=== PATIENT | male | born 1945 | race Caucasian/White ===

== ENCOUNTER 2017-06-26 18:56 | Emergency (ER) | payer MEDICARE, OTHER ==
[~2017-06-26] VITALS: Ht 180.3 cm; Wt 106.2 kg
[~2017-06-26 18:56] MED LIST: DIOV160T8 PO; DOXY100T PO; NAPR500 PO; SULF1TAB47 PO; TAB-TAB PO
[2017-06-26 19:03] VITALS: BP 186/87; PULSE 126; RESP 12; TEMP 99.2; O2SAT 98
[2017-06-26] MEDS ORDERED: LUTE20CA PO (19:22)
[2017-06-26] MEDS ORDERED: NAPR500T2 PO (19:22)
[2017-06-26] MEDS ORDERED: AMLO5TAB2 PO (19:22)
[2017-06-26] MEDS ORDERED: COEN1CAP17 (19:22)
--- NOTE | 2017-06-26 19:29 | PD ---
HPI Chief Complaint: Skin Problem Time Seen by Provider: 19:19 Travel History International Travel<30 days: No Contact w/Intl Traveler<30days: No Traveled to known affect area: No History of Present Illness HPI Patient comes to the emergency department for evaluation of possible allergic reaction ongoing for 8 days. Patient reports 8 days ago he awoke with his lip swelling got progressively worse. Patient contacted his primary care doctor who switched his blood pressure medicine around and told him to take Zyrtec. Patient reports he has been doing this and symptoms have improved. Patient's rash moved from his face to his belt line which has improved. Patient complaining of the rash onto his left hand today. Patient describes rash has been pruritic, but denies this currently. Patient reports he has feels slight pressure in his left hand. Patient denies anything making it worse. Patient last took Zyrtec today around noon. Patient denies any respiratory symptoms, sensation of throat closing, or other no new allergen exposures. Patient reports his primary care doctor sent him for blood work today and has follow-up appointment with him tomorrow. Denies any trauma or IV drug use. Denies any fevers. PFSH Past Medical History Heart Rhythm Problems: No Cardiac Catheterization: No Cardiovascular Problems: Yes High Cholesterol: No Congestive Heart Failure: No Diabetes: No Diminished Hearing: No Gastrointestinal Disorders: Yes (HX OF COLITIS) Hypertension: Yes Myocardial Infarction: No ?: Not Past Surgical History Cholecystectomy: Yes Coronary Artery Bypass Graft: No Eye Surgery: Yes (NARROW ANGLE GLAUC-LASER SURG) Social History Alcohol Use: No Tobacco Use: No Substance Use: No Allergies-Medications (Allergen,Severity, Reaction): Coded Allergies: No Known Allergies (Verified , 10/19/11) Reported Meds & Prescriptions Reported Meds & Active Scripts Active Pepcid (Famotidine) 20 Mg Tab 20 Mg PO BID 10 Days Medrol Dosepak (Methylprednisolone) 4 Mg Dspk 4 Mg PO DIRECTED Per Pharmacist direction Reported Lutein 20 Mg Cap 20 Mg PO DAILY [id number] E (Coenzyme [id number] E) 200 MG-20 Unit Cap Naproxen 500 Mg Tab 500 Mg PO BID Amlodipine (Amlodipine Besylate) 5 Mg Tab 5 Mg PO DAILY Review of Systems Except as stated in HPI: all other systems reviewed are Neg Physical Exam Narrative GENERAL: Well-developed, overly nourished, in no acute distress, and non-ill appearing. SKIN: Focused skin assessment warm and dry. Mild erythema soft tissue swelling noted left hand. No crepitus induration, fluctuation, or signs of secondary infection. HEAD: Atraumatic. Normocephalic. EYES: Pupils equal and round. EOMI. No scleral icterus. No injection or drainage. ENT: No nasal bleeding or discharge. Mucous membranes pink and moist. NECK: Trachea midline. No no stridor. Supple. No nuclear rigidity. CARDIOVASCULAR: Regular rate and rhythm. No murmur appreciated. RESPIRATORY: No accessory muscle use. No respiratory distress. Clear to auscultation. Breath sounds equal bilaterally. No stridor MUSCULOSKELETAL: No obvious deformities. No clubbing. No cyanosis. No edema. Full range of motion. NEUROLOGICAL: Awake and alert. No obvious cranial nerve deficits. Motor grossly within normal limits. Normal speech. PSYCHIATRIC: Appropriate mood and affect; insight and judgment normal. Data Data Last Documented VS Vital Signs Date Time Temp Pulse Resp B/P (MAP) Pulse Ox O2 Delivery O2 Flow Rate FiO2 06/26/17 20:28 112 18 149/86 (107) 96 Room Air 06/26/17 19:03 99.2 Orders Orders Dexamethasone Inj (Decadron Inj) (06/26/17 19:30) Famotidine (Pepcid) (06/26/17 19:30) Ed Discharge Order (06/26/17 20:18) [facility] Medical Decision Making Medical Screen Exam Complete: Yes Emergency Medical Condition: Yes Differential Diagnosis Allergic reaction, rash, gout, pseudogout, arthritis Narrative Course Appears allergic reaction. There is no airway involvement nor difficulty swallowing. Patient looks great. The patient is tolerating fluids. The patient looks great, the findings are minimal and due to nonprogression of symptoms here the patient is safe to discharge home. The patient feels comfortable with plan and will return immediately if symptoms begin to worsen. The rash is not consistent with erythema multiforme at this time. The patient is to continue histamine 1 and 2 blockade as well as steroids. The patient was instructed to avoid potential precipitating factor and to follow up with their regular physician and or follow up with clinic specialist for definitive allergy testing. The patient agrees with plan. Patient in no obvious distress upon re-evaluation. Patient's symptoms improved. Patient was asked if they wanted to speak to my attending, which the patient did not wish to do at this time. Any questions/concerns in reference to patient diagnosis/condition discussed and clarified prior to patient's discharge. Reinforced sheer importance of close follow up with patient's primary physician or primary care clinic. Instructed patient to return to ED immediately, if symptoms return/worsen. Patient showed understanding of above instructions. Further instructions and recommendations were detailed in discharge paperwork. Patient ambulated without difficulty out of ED at discharge. Diagnosis Primary Impression: Allergic reaction Qualified Codes: T78.40XD - Allergy, unspecified, subsequent encounter Patient Instructions: General Allergic Reaction (ED), General Instructions Additional Instructions: Follow-up with your primary care physician tomorrow for reevaluation. Take all medication as prescribed. Do not take your naproxen while taking steroids prescribed today. Return to the emergency department if symptoms get worse. Med/Other Pt SpecificInfo: Prescription(s) given Scripts Famotidine (Pepcid) 20 Mg Tab 20 MG PO BID for 10 Days, #20 TAB 0 Refills Prov: Lilia Yen MD 06/26/17 Methylprednisolone Dosepak (Medrol Dosepak) 4 Mg Dspk 4 MG PO DIRECTED, #1 DSPK 0 Refills Per Pharmacist direction Prov: Lilia Yen MD 06/26/17 Disposition: 01 DISCHARGE HOME Condition: Stable Vimal Quiroz Jun 26, 2017 19:29
[2017-06-26] MEDS ORDERED: DEXAMETHASONE SOD PHOS 20 MG/5 ML VIAL IM ONE (19:30)
[2017-06-26] MEDS ORDERED: FAMOTIDINE 20 MG TAB PO ONE (19:30)
[2017-06-26] MEDS ORDERED: FAMO1TAB37 PO (20:20)
[2017-06-26] MEDS ORDERED: MEDR4PAK PO (20:20)
[2017-06-26 20:28] VITALS: BP 149/86; PULSE 112; RESP 18; O2SAT 96
== END 2017-06-26 20:41 | disposition home or self-care (01) ==
LOC: PHEFT 18:56
DX: T78.40XA Allergy, unspecified, initial encounter (principal); X58.XXXA Exposure to other specified factors, initial encounter; R21 Rash and other nonspecific skin eruption; I10 Essential (primary) hypertension
CPT/HCPCS: 96372; 99283; J1100

== ENCOUNTER 2017-07-11 05:39 | Emergency (ER) | payer MEDICARE, OTHER ==
[~2017-07-11] VITALS: Ht 180.3 cm; Wt 102.9 kg
[~2017-07-11 05:39] MED LIST changes: +AMLO5TAB2 PO; +COEN1CAP17; -DIOV160T8 PO; -DOXY100T PO; +FAMO1TAB37 PO; +LUTE20CA PO; +MEDR4PAK PO; -NAPR500 PO; +NAPR500T2 PO; -SULF1TAB47 PO; -TAB-TAB PO
[2017-07-11 05:45] VITALS: BP 182/89; PULSE 97; RESP 18; TEMP 97.8; O2SAT 98
[2017-07-11 05:59] VITALS: O2SAT 97
[2017-07-11] MEDS ORDERED: SODIUM CHLORIDE 0.9% FLUSH 10 ML FLUSH IV FLUSH PRN (06:00)
[2017-07-11] MEDS ORDERED: diphenhydrAMINE HCL 50 MG/ML VIAL IVP ONE (06:00)
[2017-07-11] MEDS ORDERED: methylPREDNISolone SOD SUCC 125 MG/2 ML VIAL IV PUSH ONE (06:00)
[2017-07-11] MEDS ORDERED: FAMOTIDINE 20 MG/2 ML VIAL IV PUSH ONE (06:00)
[2017-07-11 07:15] VITALS: BP 156/80; PULSE 73; RESP 18; O2SAT 97
--- NOTE | 2017-07-11 07:26 | PD ---
HPI Chief Complaint: Facial Pain or Swelling Time Seen by Provider: 05:49 Travel History International Travel<30 days: No Contact w/Intl Traveler<30days: No Traveled to known affect area: No History of Present Illness HPI 72-year-old male presents to the emergency department by private transportation the care of his spouse for evaluation of tongue swelling. Patient states within the past month he has been seen by his primary care provider for lip and tongue swelling was placed on Zyrtec and had his valsartan antihypertensive discontinued subsequently he had recurrent swelling of the tongue and left hand and was placed on steroid therapy and completed tapering dose of steroid therapy approximately 10-14 days ago and then in the interim has had some eye redness and itching but that has resolved over the past 4 days and then awakened this morning with recurrent tongue swelling. Patient is on new antihypertensive medication. Patient states he did not accidentally take a valsartan. Patient presents with valsartan and his medicine bag. Patient denies any lip swelling facial swelling throat tightness or swelling no stridor or hoarseness no chest pain no palpitations no shortness of breath no wheezing no near-syncope no syncope no nausea no vomiting no diarrhea no crampy abdominal pain. Patient also denies any urticaria. Patient did take Zyrtec prior to arrival to the emergency department. Patient states he felt as if his symptoms were improving on the Zyrtec. Patient has taken no other medications. Patient denies any new detergents linens clothing beverages foods vitamins diet supplements. PFSH Past Medical History Narrative Medical Hypertension recurrent angioedema no tobacco use nursing notes reviewed Heart Rhythm Problems: No Cardiac Catheterization: No Cardiovascular Problems: Yes High Cholesterol: No Congestive Heart Failure: No Diabetes: No Diminished Hearing: No Gastrointestinal Disorders: Yes (HX OF COLITIS) Hypertension: Yes Myocardial Infarction: No Tetanus Vaccination: > 5 Years Influenza Vaccination: Yes ?: Not Past Surgical History Cholecystectomy: Yes Coronary Artery Bypass Graft: No Eye Surgery: Yes (NARROW ANGLE GLAUC-LASER SURG) Social History Alcohol Use: No Tobacco Use: No Substance Use: No Allergies-Medications (Allergen,Severity, Reaction): Coded Allergies: No Known Allergies (Verified Adverse Reaction, Unknown, 07/11/17) Reported Meds & Prescriptions Reported Meds & Active Scripts Active Pepcid (Famotidine) 20 Mg Tab 20 Mg PO BID 10 Days Medrol Dosepak (Methylprednisolone) 4 Mg Dspk 4 Mg PO DIRECTED Per Pharmacist direction Reported Amlodipine (Amlodipine Besylate) 5 Mg Tab 5 Mg PO DAILY Review of Systems Except as stated in HPI: all other systems reviewed are Neg Physical Exam Narrative GENERAL: Well-developed well-nourished male in no acute distress no respiratory distress no stridor or hoarseness SKIN: Warm and dry. No rash no urticaria HEAD: Normocephalic. EYES: No scleral icterus. No injection or drainage. ENT: Glossal edema airway is patent no uvula edema no lip swelling NECK: Supple, trachea midline. No JVD or lymphadenopathy. CARDIOVASCULAR: Regular rate and rhythm without murmurs, gallops, or rubs. RESPIRATORY: Breath sounds equal bilaterally. No accessory muscle use. GASTROINTESTINAL: Abdomen soft, non-tender, nondistended. MUSCULOSKELETAL: No cyanosis, or edema. BACK: Nontender without obvious deformity. No CVA tenderness. Data Data Last Documented VS Vital Signs Date Time Temp Pulse Resp B/P (MAP) Pulse Ox O2 Delivery O2 Flow Rate FiO2 07/11/17 05:59 97 Room Air 07/11/17 05:55 18 07/11/17 05:45 97.8 97 Orders Orders Ecg Monitoring (07/11/17 05:49) Iv Access Insert/Monitor (07/11/17 05:49) Oximetry (07/11/17 05:49) Diphenhydramine Inj (Benadryl Inj) (07/11/17 06:00) Methylprednisolone So Succ Inj (Solumedr (07/11/17 06:00) Famotidine Inj (Pepcid Inj) (07/11/17 06:00) Sodium Chloride 0.9% Flush (Ns Flush) (07/11/17 06:00) Dexamethasone Inj (Decadron Inj) (07/11/17 07:30) MDM Medical Decision Making Medical Screen Exam Complete: Yes Emergency Medical Condition: Yes Medical Record Reviewed: Yes Differential Diagnosis Acute allergic reaction, angioedema, anaphylaxis Narrative Course Patient presents with glossal angioedema administered Benadryl 25 mg IV, Pepcid 20 mg IV, Solu-Medrol 125 mg IV Patient placed on uniforms sales representative with continuous pulse oximetry Patient resting comfortably at 7 AM stating tongue has started to decrease in size again has no hoarseness or stridor. @ 07:50 care signed over to Lilia Sherman MD Jul 11, 2017 07:26
[2017-07-11] MEDS ORDERED: DEXAMETHASONE SOD PHOS 4 MG/ML VIAL IV PUSH ONE (07:30)
[2017-07-11 08:30] VITALS: BP 162/81; PULSE 90; RESP 18; O2SAT 99
[2017-07-11] MEDS ORDERED: EPIN0.3A2 IM (09:06)
[2017-07-11] MEDS ORDERED: FAMO1TAB37 PO (09:06)
[2017-07-11] MEDS ORDERED: MEDR4PAK PO (09:06)
--- NOTE | 2017-07-11 09:06 | PD ---
Data Data Last Documented VS Vital Signs Date Time Temp Pulse Resp B/P (MAP) Pulse Ox O2 Delivery O2 Flow Rate FiO2 07/11/17 09:13 82 16 155/80 (105) 98 07/11/17 08:30 Room Air 07/11/17 05:45 97.8 Orders Orders Ecg Monitoring (07/11/17 05:49) Iv Access Insert/Monitor (07/11/17 05:49) Oximetry (07/11/17 05:49) Diphenhydramine Inj (Benadryl Inj) (07/11/17 06:00) Methylprednisolone So Succ Inj (Solumedr (07/11/17 06:00) Famotidine Inj (Pepcid Inj) (07/11/17 06:00) Sodium Chloride 0.9% Flush (Ns Flush) (07/11/17 06:00) Dexamethasone Inj (Decadron Inj) (07/11/17 07:30) Ed Discharge Order (07/11/17 09:07) MDM Supervised Visit with GARCÍA: No Narrative Course Patient CARE assume from Dr. Lilia Yen at 0730, this is a 72-year-old male presents emergency department for evaluation of edema to his lips and tongue. I was approached by nursing and after interventions by Dr. Yen the patient states he is feeling good and wants to go home. He has been on arm therapy in the past but never on SARAH therapy. This was recently discontinued. He cannot think of any other exacerbating factors. On my exam his airway is widely patent I see no edema of his lips tongue hand, no urticaria. He is protecting his airway and his states his voice is at baseline. He is quite pleasant and cooperative. Will place on a short Medrol Dosepak and I suggested that he needs to follow-up with an residence life director. He states he does have an appointment with his primary care physician next week. He is urged to keep that appointment. I discussed with him EpiPen the indications for usage which would be severe respiratory respiratory involvement or airway involvement and discussed the symptoms of those. I discussed that after he uses that he should call [phone]. He is stable for discharge at this time Diagnosis Primary Impression: Angio-edema Qualified Codes: T78.3XXA - Angioneurotic edema, initial encounter Med/Other Pt SpecificInfo: Prescription(s) given Scripts Epinephrine (Epipen) 0.3 Mg/0.3 Ml Auto.injct 1 INJECTION IM ONCE Y for SHORTNESS OF BREATH, #1 Prov: Allen Guevara MD 07/11/17 Famotidine (Pepcid) 20 Mg Tab 20 MG PO BID for 10 Days, #20 TAB 0 Refills Prov: Allen Guevara MD 07/11/17 Methylprednisolone Dosepak (Medrol Dosepak) 4 Mg Dspk 4 MG PO DIRECTED, #1 DSPK 0 Refills Per Pharmacist direction Prov: Allen Guevara MD 07/11/17 Disposition: 01 DISCHARGE HOME Condition: Stable Allen Guevara MD Jul 11, 2017 09:06
[2017-07-11 09:13] VITALS: BP 155/80
== END 2017-07-11 09:14 | disposition home or self-care (01) ==
LOC: PHED 05:39
DX: T78.3XXA Angioneurotic edema, initial encounter (principal); I10 Essential (primary) hypertension
CPT/HCPCS: 96374; 96375; 99284; J1100; J1200; J2930